=== PATIENT | male | born 1945 | race Hispanic/Latino ===

== ENCOUNTER 2023-01-02 20:46 | Emergency (ER) | payer MEDICARE, OTHER, SELFPAY ==
--- NOTE | ~2023-01-02 | CT_ITS ---
EXAMINATION: CT brain wo con INDICATION: Headache COMPARISON: None TECHNIQUE: Standard unenhanced head CT. The dose-length product (DLP) was 756.67 mGy-cm. The mA was a djusted according to patient size. Iterative reconstruction technique was employed. FINDINGS: No acute intraparenchymal hemorrhage. No evidence of mass lesion. No evidence of acute infa rction. There is mild periventricular and subcortical hypodensity probably related to small vessel is chemic disease. Arachnoid cyst is noted anteriorly in the right temporal fossa. There is mild promine nce of the sulci and ventricles related to cerebral atrophy. Intracranial calcified cerebral atherosc lerosis is noted. No extra-axial collections. No mass effect or midline shift. The orbits and soft ti ssues are unremarkable. The visualized sinuses and mastoid air cells are well aerated. IMPRESSION: 1. No acute intracranial abnormality. 2. Age related findings. Reviewed, dictated and finalized at location F.
--- NOTE | ~2023-01-02 | XR_ITS ---
EXAMINATION: XR chest 2V DATE: 01/02/2023 22:26 INDICATION: Pain after fall TECHNIQUE: AP and lateral views of the chest are obtained. COMPARISON: None available FINDINGS: The lungs are free of acute opacities. No pleural effusion or pneumothorax. The cardiomedia stinal silhouette is normal. There are bridging osteophytes at multiple levels in the spine, consiste nt with diffuse idiopathic skeletal hyperostosis (DISH). IMPRESSION: 1. No acute cardiopulmonary abnormality. Reviewed, dictated and finalized at location F.
--- NOTE | ~2023-01-02 | CT_ITS ---
EXAMINATION: CT cervical spine wo con DATE: 01/02/2023 22:43 INDICATION: Neck pain TECHNIQUE: Computed tomography (CT) of the cervical spine was performed without intravenous contrast. The dose-length product (DLP) was 521.78 mGy-cm. Automated exposure control and iterative reconstruc tion technique were employed. COMPARISON: None FINDINGS: Bone alignment is normal. There is no fracture. The vertebral body heights are maintained. There is moderate loss of intervertebral disc space height at C6-7. Small degenerative osteophytes pr oject from the anterior endplates of multiple vertebral bodies. 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 The odontoid process is intact. There is an osseous fragment at the tip of the C6 spinous process which could reflect prior fracture. IMPRESSION: 1. Mild cervical spondylosis without acute findings. Reviewed, dictated and finalized at location F.
[2023-01-02 20:51] VITALS: BP 128/65; PULSE 89; RESP 16; TEMP 36.5; O2SAT 98
[2023-01-02] MEDS: ACETAMINOPHEN 500 MG TABLET 1000 MG PO (21:55)
--- NOTE | 2023-01-02 22:14 | ED.FALL ---
HPI - Fall General Chief Complaint: Fall Stated Complaint: fell, back pain Time Seen by Provider: 01/02/23 21:47 Source: patient and family (daughter) Limitations: no limitations History of Present Illness HPI Narrative: Patient is a 77-year-old male present to the emergency department complaining of a fall just prior to arrival. Patient states that he was going up the stairs of the porch and was on the for step when he tripped and fell backwards onto the grass hitting the upper portion of the right side of his back, patient denies hitting his head or having any loss of consciousness. Patient denies use of blood thinners. Patient states he has been able to stand up and ambulate since the injury. Patient admits to some mild discomfort over his right scapula and he has not taken any medications for this. Patient denies numbness, weakness, headache, vision changes, confusion, loose or chipped teeth, chest pain, shortness of breath, abdominal pain, nausea, vomiting, urinary incontinence, stool incontinence. Patient denies any decreased range of motion. Daughter notes that the patient was slightly confused after the injury but promptly returned to baseline and has since been maintaining his normal mentation. Patient denies feeling confused. Patient denies any significant discomfort of the right scapula at rest but states it is present when he moves his upper back. Related Data Allergies Allergy/AdvReac Type Severity Reaction Status Date / Time No Known Allergies Allergy Verified 01/02/23 21:49 Review of Systems Review of Systems: A 10 system review of systems was completed on the patient and is negative except for what is stated in the HPI. Nursing and ancillary documentation was reviewed. PMFSH Comments At time of signature, I have reviewed and agree with nursing past medical, surgical, social and family history unless otherwise noted. Please see the nursing chart for further information. There is no relevant family history pertinent to the presenting complaint. Exam Narrative: CONST: No acute distress. Well nourished. HENMT: Head is normocephalic and atraumatic. Moist mucous membranes. No posterior oropharynx erythema. Facial bones stable. Dentition grossly intact. EYES: No conjunctival icterus, injection, or pallor. PERRL. Extraocular motions intact. NECK: No meningeal signs. Trachea midline. No JVD. No midline cervical spinal tenderness to palpation. RESP: Able to speak in full sentences. Normal respiratory effort. CTAB. CARDIO: Regular rate. Regular rhythm. 2+ DP and radial pulses bilaterally. GI: Nondistended. No tenderness to palpation. Soft. : No CVA tenderness to palpation. SKIN: No rashes or lesions noted on exposed skin. NEURO: Oriented x3. Moves all extremities. No focal neurological deficits. EXTREM/MSK/BACK: No pedal edema. Extremity range of motion intact with active range of motion without tenderness. No palpable deformities of the extremities or tenderness palpation. No midline vertebral tenderness to palpation or step-offs. Mild tenderness palpation over the right scapula without any palpable deformity or overlying skin changes. PSYCH: Normal affect. Course Vital Signs Vital signs: Vital Signs Temperature 97.7 F 01/02/23 20:51 Pulse Rate 89 01/02/23 20:51 Respiratory Rate 16 01/02/23 20:51 Blood Pressure 128/65 01/02/23 20:51 Pulse Oximetry 98 01/02/23 20:51 Oxygen Delivery Room Air 01/02/23 20:51 Temperature 97.7 F 01/02/23 20:51 Pulse Rate 89 01/02/23 20:51 Respiratory Rate 16 01/02/23 20:51 Blood Pressure 128/65 01/02/23 20:51 Pulse Oximetry 98 01/02/23 20:51 Oxygen Delivery Room Air 01/02/23 20:51 MDM - Fall MDM Narrative Medical decision making narrative: Patient presents with the above complaint. Initial vitals are remarkable for no significant abnormalities. Patient appears in no acute distress. Physical examination notable
--- NOTE | 2023-01-02 23:06 | PC.NURSE ---
Report from JOSELUIS Peter. Awaiting CT results.
== END 2023-01-02 23:29 | disposition home or self-care (01) ==
PROVIDERS: Emergency Provider Student in an Organized Health Care Education/Training Program
DX: S39.012A Strain of muscle, fascia and tendon of lower back, initial encounter (principal); W19.XXXA Unspecified fall, initial encounter
CPT/HCPCS: 70450; 71046; 72125; 99284; A9270